=== PATIENT | male | born 1955 | race Caucasian/White ===

== ENCOUNTER 2017-10-07 05:09 | Day surgery (SDC) | payer BC ==
[~2017-10-07] VITALS: Ht 170.2 cm; Wt 86.1 kg
[~2017-10-07 05:09] MED LIST: ATORVASTATIN CA20 MG PO; BACLOFEN10 MG PO; CYMBALTA60 MG PO; DULERA 200 MCG/13 GM IH; HYDROCODON-ACE1 EAC7 PO; LO-DOSE ASPIRIN81 M2 PO; LYRICA100 MG PO; OMEPRAZOLE20 MG PO; OXYCODONE-ACET1 EACH PO; PROAIR HFA8.5 GM IH; TOPAMAX25 MG PO
[2017-10-07 05:42] VITALS: BP 175/87
[2017-10-07 15:03] VITALS: BP 157/83
[2017-10-07 19:51] VITALS: BP 152/73
[2017-10-08 00:11] VITALS: BP 143/79
[2017-10-08 04:14] VITALS: BP 151/82
[2017-10-08 08:30] VITALS: BP 161/76
[2017-10-08] MEDS ORDERED: METHYLPREDNISOLO4 M1 PO (11:23)
== END 2017-10-08 12:35 | disposition home or self-care (01) ==
LOC: SDC 05:09 → 3EAST 12:00 → ENRESERV 13:31 → SDC 15:01 → 3EAST 10-08 12:35
DX: M47.22 Other spondylosis with radiculopathy, cervical region (principal); G95.20 Unspecified cord compression; J44.9 Chronic obstructive pulmonary disease, unspecified; F41.9 Anxiety disorder, unspecified; F32.9 Major depressive disorder, single episode, unspecified; E78.00 Pure hypercholesterolemia, unspecified; F17.210 Nicotine dependence, cigarettes, uncomplicated; Z82.49 Family history of ischemic heart disease and other diseases of the circulatory system; Z87.820 Personal history of traumatic brain injury; Z88.6 Allergy status to analgesic agent
CPT/HCPCS: 72020; 76000; 94640; C1713; C1821; G0378; J0330; J0690; J1100; J1170; J2250; J2405; J3010; J3480